=== PATIENT | female | born 1960 | race Caucasian/White ===

== ENCOUNTER 2018-09-18 06:15 | Inpatient (IN) | payer OTHER ==
[~2018-09-18] VITALS: Ht 165.1 cm; Wt 73.8 kg
[2018-09-18 08:19] VITALS: BP 112/60; PULSE 82; RESP 17
[2018-09-18 08:30] VITALS: Ht 165.1 cm; Wt 73.8 kg
[2018-09-18] MEDS ORDERED: CHOL400T10 PO (08:45)
[2018-09-18] MEDS ORDERED: ASPI-817 PO (08:45)
[2018-09-18] MEDS ORDERED: GLYB5TAB3 PO (08:45)
[2018-09-18] MEDS ORDERED: ATOR40TA68 PO (08:45)
[2018-09-18] MEDS ORDERED: BENA10TA4 PO (08:45)
[2018-09-18] MEDS ORDERED: METF100010 PO (08:45)
[2018-09-18] MEDS ORDERED: ALEN70TA5 PO (08:45)
[2018-09-18] MEDS ORDERED: LEVO50TA7 PO (08:45)
[2018-09-18] MEDS ORDERED: ALBU18HF INHALATION (08:53)
[2018-09-18] MEDS ORDERED: LORA10TA3 PO (08:53)
[2018-09-18] MEDS ORDERED: OMEP10CA4 PO (08:53)
[2018-09-18] MEDS ORDERED: CIPR500T4 PO (09:31)
[2018-09-18] MEDS ORDERED: morphine 2 MG INJ IV PRN (11:30)
[2018-09-18] MEDS ORDERED: ONDANSETRON 4 MG INJ IV PRN (11:30)
[2018-09-18] MEDS ORDERED: ACETAMINOPHEN 325 MG TAB PO PRN (11:30)
[2018-09-18] MEDS ORDERED: GLUCOSE GEL 15 GRAM TUBE BUCCAL PRN (12:00)
[2018-09-18] MEDS ORDERED: GLUCOSE GEL 15 GRAM TUBE PO PRN ×2 (12:00)
[2018-09-18] MEDS ORDERED: DEXTROSE 50% 50 ML SYRINGE IV PRN ×2 (12:00)
[2018-09-18] MEDS ORDERED: GLUCAGON 1 MG INJ IM PRN (12:00)
[2018-09-18] MEDS: LEVOFLOXACIN 500MG/D5W (PMX) 100 ML IVPB SCH (12:22)
[2018-09-18] MEDS: DEXTROSE 5%-0.9% NACL 1,000 ML IV SCH (12:23)
[2018-09-18] MEDS: INSULIN ASPART [NOVOLOG] 3 ML PEN SC SCH ×3 (12:56→20:51)
[2018-09-18 14:16] VITALS: BP 124/71; PULSE 76; RESP 16
--- NOTE | 2018-09-18 15:32 | HP ---
Date/Time of Note Date/Time of Note DATE: 09/18/18 TIME: 14:51 Assessment/Plan VTE Prophylaxis Pharmacological prophylaxis: NA/contraindicated Pharm contraindication: surgical contra (Possible) Assessment/Plan Hospital Course 1. Abdominal pain with acute diverticulitis in the distal sigmoid colon. No specific sign of microperforation or large abscess formation at this time. CT scan of abdomen reviewed. Pt was treated with a/b earlier. Patient was transferred from outside facility. Appendix is normal. 2.diabetes mellitus type 2 with hyperglycemia 3. Hypothyroidism 4. Overweight 5. Hypertension 6. History of arthritis 7. History of asthma 8. Fatty hepatomegaly. There are a CT scan reviewed. 9. 1 mm nonobstructing renal stone left kidney. CT scan of abdomen with no contrast seen 10. June 16, 2016 had varicose vein removal surgery on left leg. 11. July 10, 2017 fractured tibial plateau and has consecutive surgery on the open reduction internal fixation on the left leg and 1 of the screw was rejected and removed on additional surgery September 01, 2017 12. History of heart murmur. Assessment/Plan -DVT prophylaxis SCD bilaterally, chemical agents cannot be utilized due to possible surgical interventions -GI prophylaxis Protonix IV Continue with home medications -N.p.o. except meds GI consult with Dr. Kearney, gastroenterology -fall precaution -Pain control -Discussed diagnosis acute diverticulitis, treatment, risks benefits, side effects and alternate treatment. -Medications, their effects and side effects including metabolic, affect on heart were discussed.. -Care coordinated with Dr Ley Results 24hrs Laboratory Tests Test 09/18/18 12:31 Bedside Glucose 244 H HPI/ROS Admit Date/Time Admit Date/Time Sep 18, 2018 at 07:40 Hx of Present Illness This 58-year-old female was transferred from outside facility today around 11 AM . The transfer is because of the insurance purposes. patient went yesterday to [facility] emergency room with abdominal pain, she describes it as a colicky, worsened with urination and defecation. Patient reported nausea, denied vomiting.. There was a CT scan of abdomen without contrast performed in the emergency room: Impression: Interval progression of diverticulitis seen in the distal sigmoid colon with a just adjacent fat stranding and small amount of fluid collection there is no specific sign of the microperforation or large abscess formation at this time. Fatty hepatomegaly. 1 mm nonobstructing renal stone seen in the inferior pole of the left kidney. Previously patient reported that she has acute diverticulitis diagnosed in August 2018, she was taking metronidazole ciprofloxacin, Naproxen, and Zofran. She feels the treatment but if your pain is not improved. She reported during the treatment fever. She also was diagnosed with H. pylori and underwent 2 months of the treatment now she is off treatment. BMP collected today showed sodium 135, potassium 4.7, chloride 96, CO2 27, anion gap 12, glucose 328, BUN 14 mg/L creatinine 0.6 mg/dL GFR more than 60 calcium 9.2. CBC was resulted today and shows WBC 7.9 RBC 4.15 hemoglobin 13.5 hematocrit 39, MCV 94, MCH 32.4, MCHC 34, platelets 311, neutrophil 53% patient. Also urinalysis is performed , the result is abnormal color yellow clarity clear pH 6.5 protein negative blood negative glucose 500 mg/dL WBC 0.5 squamous epithelial moderate, RBC none, urine negative, none l eukocyte esterase none nitrate none, bilirubin none, ketones negative. Patient was given Rocephin 1 g intravenously.. She was given metronidazole 500 mg once and she was given 1 L of normal saline medical history of overweight, hyperlipidemia, osteoporosis diabetes mellitus type 2, hypothyroidism, hypertension, arthritis, history of asthma, history of allergies, Surgical history June 16, 2016 had varicose vein removal surgery on left leg. July 10, 2017 fractured tibial plateau and has consecutive surgery on the open reduction internal fixation on the left leg and 1 of the screw was rejected and removed on additional surgery September 01, 2017. Social history lives with and daughter. ROS Constitutional: No fever, cough or chills, appears overweight. Down quietly in bed EYE: No eye disease. No visual problems. CARDIOVASCULAR: No chest pain. No Tachycardia. No Palpitation. RESPIRATORY: No breathing problems. No COPD or disease of respiration. GASTROINTESTINAL: Patient reported nausea. No Vomiting. No constipation. Abdominal pain 7 out of 10 in the , right lower quadrant pain and left lower quadrant pain urine palpation. Endocrine: No excessive thirst, No polyuria, No hot intolerance. No cold intolerance. Has diabetes mellitus type 2 and hypothyroidism she is taking metformin and a thyroid supplement at home MUSCULO-SKELETAL: Left knee with surgical scar very sensitive on palpation. Sensorium lower extremities waiting. NEUROLOGICAL: Alert oriented in person, place, time and situation. No Headache, Confusion. No Seizures. No problem with balance. PMH/Family/Social Past Medical History Medical History: diabetes, hypertension, hypothyroid Medications Current Medications Insulin Aspart (Novolog Insulin Pen) NOVOLOG *MODERATE* ALGORI... Q4 SC Last administered on 09/18/18at 12:56; Admin Dose 6 UNIT; Start 09/18/18 at 13:00 Dextrose/Sodium Chloride 1,000 ml @ 75 mls/hr [id number] IV Last administered on 09/18/18at 12:23; Admin Dose 75 MLS/HR; Start 09/18/18 at 11:30 Pantoprazole (Protonix Iv) 40 mg DAILY@06 IV ; Start 09/19/18 at 06:00 Acetaminophen (Tylenol Tab) 650 mg Q6H PRN PO MILD PAIN(1-3)OR ELEVATED TEMP; Start 09/18/18 at 11:30 Levofloxacin/ Dextrose 100 ml @ 100 mls/hr Q24H IVPB Last administered on 09/18/18at 12:22; Admin Dose 100 MLS/HR; Start 09/18/18 at 12:00 Ondansetron HCl (Zofran Inj) 4 mg Q4H PRN IV NAUSEA AND/OR VOMITING; Start 09/18/18 at 11:30 Morphine Sulfate (morphine) 2 mg Q4H PRN IV SEVERE PAIN LEVEL 5-10; Start 09/18/18 at 11:30 Miscellaneous Information 1 ea NOTE XX ; Start 09/18/18 at 12:00 Glucose (Glutose) 15 gm Q15M PRN PO DECREASED GLUCOSE; Start 09/18/18 at 12:00 Glucose (Glutose) 22.5 gm Q15M PRN PO DECREASED GLUCOSE; Start 09/18/18 at 12:00 Dextrose (D50w Syringe) 25 ml Q15M PRN IV DECREASED GLUCOSE; Start 09/18/18 at 12:00 Dextrose (D50w Syringe) 50 ml Q15M PRN IV DECREASED GLUCOSE; Start 09/18/18 at 12:00 Glucagon (Glucagen) 1 mg Q15M PRN IM DECREASED GLUCOSE; Start 09/18/18 at 12:00 Glucose (Glutose) 15 gm Q15M PRN BUCCAL DECREASED GLUCOSE; Start 09/18/18 at 12:00 Coded Allergies: amoxicillin (Verified Allergy, Unknown, 09/18/18) meperidine (Verified Allergy, Unknown, 09/18/18) pseudoephedrine (Verified Allergy, Unknown, 09/18/18) Social History Alcohol Use: none Smoking Status: Never smoker Drug Use: none Exam/Review of Systems Vital Signs Vitals Vital Signs Date Temp Pulse Resp B/P (MAP) Pulse Ox O2 O2 Flow FiO2 Time Delivery Rate 09/18/18 98.0 76 16 124/71 98 Room Air 14:16 (88) Exam Exam No acute distress. Eyes: anicteric, EOM's intact, no pallor Nose: no rhinorrhea Neck: supple, no thyromegaly, no carotid bruits Lungs: clear bilaterally, decreased. CVS: regular rate and rhythm, soft murmur more likely systolic Abdomen: soft, bowel sounds present, no hepatosplenomegally, pain on palpation in the right lower quadrant of abdomen, pain on palpation in left lower quadrant of abdomen some guarding is seen Rectal: differed. External genitalia: no lesions. No Murray Extremities: no edema, DP palpable Neuro: alert and oriented x 3 Gait: Unable to assess patient in the bed Motor strenght: 5+/5+ Sensory exam is normal Deep tendon reflexes: normal, Babisky reflexes are absent bilaterally Skin: Left knee deformation and scar. Varicose veins are seen lower extremities MICHELLE MEDELLIN Sep 18, 2018 15:01
[2018-09-18] MEDS ORDERED: ALBUTEROL 18 GM INHALER INH PRN (16:30)
[2018-09-18] MEDS: BENAZEPRIL 10 MG TAB PO SCH (18:32)
[2018-09-18 20:14] VITALS: BP 112/58; PULSE 72; RESP 18
[2018-09-19] MEDS: INSULIN ASPART [NOVOLOG] 3 ML PEN SC SCH ×6 (00:59→22:13)
[2018-09-19 02:12] VITALS: BP 104/56; PULSE 75; RESP 16
[2018-09-19] MEDS: DEXTROSE 5%-0.9% NACL 1,000 ML IV SCH ×3 (02:50→19:12)
[2018-09-19] MEDS: LEVOTHYROXINE 50 MCG TAB PO SCH (06:30)
[2018-09-19] MEDS: PANTOPRAZOLE 40 MG INJ IV SCH (06:30)
[2018-09-19 07:18] VITALS: BP 111/60; PULSE 71; RESP 18
[2018-09-19] MEDS: BENAZEPRIL 10 MG TAB PO SCH (08:19)
--- NOTE | 2018-09-19 11:30 | PN ---
Date/Time of Note Date/Time of Note DATE: 09/19/18 TIME: 11:29 Assessment/Plan VTE Prophylaxis Risk score (from Ns)>0 risk: 3 SCD applied (from Ns): Yes Pharmacological prophylaxis: NA/contraindicated Pharm contraindication: surgical contra Lines/Catheters IV C[facility] Type (from [facility]): Peripheral IV Assessment/Plan Hospital Course 1. Abdominal pain with acute diverticulitis in the distal sigmoid colon. No specific sign of microperforation or large abscess formation at this time. CT scan of abdomen reviewed. Pt was treated with a/b earlier. Patient was transferred from outside facility. Appendix is normal. Pain is decreased 2.diabetes mellitus type 2 with hyperglycemia 3. Hypothyroidism 4. Overweight 5. Hypertension, 6. History of arthritis 7. History of asthma 8. Fatty hepatomegaly. There are a CT scan reviewed. 9. 1 mm nonobstructing renal stone left kidney. CT scan of abdomen with no contrast seen 10. June 16, 2016 had varicose vein removal surgery on left leg. 11. July 10, 2017 fractured tibial plateau and has consecutive surgery on the open reduction internal fixation on the left leg and 1 of the screw was rejected and removed on additional surgery September 01, 2017 12. History of heart murmur. Assessment/Plan Keep n.p.o. Lab work reviewed Keep IV fluids Antibiotics to continue consult is appreciated GI prophylaxis Protonix IV Pain control Hypoglycemic control Result Diagram: 09/19/18 0556 09/19/18 0556 Results 24hrs Laboratory Tests Test 09/18/18 12:31 09/18/18 15:21 09/18/18 18:31 09/18/18 20:47 Bedside Glucose 244 H 206 202 Thyroid Stimulating 1.240 Hormone (TSH) Test 09/19/18 00:57 09/19/18 05:14 09/19/18 05:56 09/19/18 08:18 Bedside Glucose 230 H 168 230 H White Blood Count 6.4 Red Blood Count 4.07 L Hemoglobin 13.0 Hematocrit 38.9 Mean Corpuscular 95.6 Volume Mean Corpuscular 31.9 Hemoglobin Mean Corpuscular 33.4 Hemoglobin Concent Red Cell 12.7 Distribution Width Platelet Count 323 Mean Platelet Volume 10.1 Immature 1.200 H Granulocytes % Neutrophils % 42.3 Lymphocytes % 42.2 Monocytes % 10.2 Eosinophils % 3.3 Basophils % 0.8 Nucleated Red Blood 0.0 Cells % Immature 0.080 H Granulocytes # Neutrophils # 2.7 Lymphocytes # 2.7 Monocytes # 0.7 Eosinophils # 0.2 Basophils # 0.1 Nucleated Red Blood 0.0 Cells # Sodium Level 141 Potassium Level 4.3 Chloride Level 107 Carbon Dioxide Level 28 Anion Gap 6 Blood Urea Nitrogen 8 Creatinine 0.59 Est Glomerular > 60 Filtrat Rate mL/min Glucose Level 194 Hemoglobin A1c 10.8 H Uric Acid 3.5 Calcium Level 9.1 Subjective 24 Hr Interval Summary Free Text/Dictation Constitutional: No fever, cough or chills. EYE: No eye disease. No visual problems. CARDIOVASCULAR: No chest pain. No tachycardia. No Palpitation. RESPIRATORY: No breathing problems. No COPD or disease of respiration. GASTROINTESTINAL: No Nausea. No Vomiting. No constipation. abd. pain decreased Endocrine: No excessive thirst, No polyuria, No hot intolerance. No cold intolerance. has DM type II. MUSCULO-SKELETAL: no left knee pain, has deformity and scar NEUROLOGICAL: Alert oriented in person, place, time and situation. No Headache, Confusion. No Seizures. No problem with balance. Exam/Review of Systems Exam Vitals Vital Signs Date Temp Pulse Resp B/P (MAP) Pulse Ox O2 O2 Flow FiO2 Time Delivery Rate 09/19/18 98.1 71 18 111/60 98 07:18 (77) 09/18/18 Room Air 14:16 Intake and Output 09/18/18 09/18/18 09/19/18 1414:59 22:59 06:59 IntakeIntake Total 100 ml 360 ml 160 ml BalanceBalance 100 ml 360 ml 160 ml Exam No acute distress, no events overnight. Eyes: anicteric, EOM's intact, no pallor Nose: no rhinorrhea Neck: supple, no thyromegaly, no carotid bruits Lungs: clear bilaterally, decreased. CVS: regular rate and rhythm, systolic murmur grade 3 murmurs Abdomen: soft, bowel sounds present, no hepatosplenomegally, no masses, no rebound or guarding. Painful on palpation in the right lower quadrant. Rectal: differed. External genitalia: no lesions. No Murray Extremities: no edema, DP palpable Neuro: alert and oriented x 3 Gait: Unable to assess, patient in bed Motor strenght: 5+/5+ Deep tendon reflexes: normal, Babisky reflexes are absent bilaterally Skin: no new lesions, old healed scars Results Results 24hrs Laboratory Tests Test 09/18/18 12:31 09/18/18 15:21 09/18/18 18:31 09/18/18 20:47 Bedside Glucose 244 H 206 202 Thyroid Stimulating 1.240 Hormone (TSH) Test 09/19/18 00:57 09/19/18 05:14 09/19/18 05:56 09/19/18 08:18 Bedside Glucose 230 H 168 230 H White Blood Count 6.4 Red Blood Count 4.07 L Hemoglobin 13.0 Hematocrit 38.9 Mean Corpuscular 95.6 Volume Mean Corpuscular 31.9 Hemoglobin Mean Corpuscular 33.4 Hemoglobin Concent Red Cell 12.7 Distribution Width Platelet Count 323 Mean Platelet Volume 10.1 Immature 1.200 H Granulocytes % Neutrophils % 42.3 Lymphocytes % 42.2 Monocytes % 10.2 Eosinophils % 3.3 Basophils % 0.8 Nucleated Red Blood 0.0 Cells % Immature 0.080 H Granulocytes # Neutrophils # 2.7 Lymphocytes # 2.7 Monocytes # 0.7 Eosinophils # 0.2 Basophils # 0.1 Nucleated Red Blood 0.0 Cells # Sodium Level 141 Potassium Level 4.3 Chloride Level 107 Carbon Dioxide Level 28 Anion Gap 6 Blood Urea Nitrogen 8 Creatinine 0.59 Est Glomerular > 60 Filtrat Rate mL/min Glucose Level 194 Hemoglobin A1c 10.8 H Uric Acid 3.5 Calcium Level 9.1 Medications Medication Current Medications Insulin Aspart (Novolog Insulin Pen) NOVOLOG *MODERATE* ALGORI... Q4 SC Last administered on 09/19/18at 08:22; Admin Dose 6 UNIT; Start 09/18/18 at 13:00 Dextrose/Sodium Chloride 1,000 ml @ 75 mls/hr [id number] IV Last administered on 09/19/18at 02:50; Admin Dose 75 MLS/HR; Start 09/18/18 at 11:30 Pantoprazole (Protonix Iv) 40 mg DAILY@06 IV Last administered on 09/19/18at 06:30; Admin Dose 40 MG; Start 09/19/18 at 06:00 Acetaminophen (Tylenol Tab) 650 mg Q6H PRN PO MILD PAIN(1-3)OR ELEVATED TEMP; Start 09/18/18 at 11:30 Levofloxacin/ Dextrose 100 ml @ 100 mls/hr Q24H IVPB Last administered on 09/18/18at 12:22; Admin Dose 100 MLS/HR; Start 09/18/18 at 12:00 Ondansetron HCl (Zofran Inj) 4 mg Q4H PRN IV NAUSEA AND/OR VOMITING; Start 09/18/18 at 11:30 Morphine Sulfate (morphine) 2 mg Q4H PRN IV SEVERE PAIN LEVEL 5-10; Start 09/18/18 at 11:30 Miscellaneous Information 1 ea NOTE XX ; Start 09/18/18 at 12:00 Glucose (Glutose) 15 gm Q15M PRN PO DECREASED GLUCOSE; Start 09/18/18 at 12:00 Glucose (Glutose) 22.5 gm Q15M PRN PO DECREASED GLUCOSE; Start 09/18/18 at 12:00 Dextrose (D50w Syringe) 25 ml Q15M PRN IV DECREASED GLUCOSE; Start 09/18/18 at 12:00 Dextrose (D50w Syringe) 50 ml Q15M PRN IV DECREASED GLUCOSE; Start 09/18/18 at 12:00 Glucagon (Glucagen) 1 mg Q15M PRN IM DECREASED GLUCOSE; Start 09/18/18 at 12:00 Glucose (Glutose) 15 gm Q15M PRN BUCCAL DECREASED GLUCOSE; Start 09/18/18 at 12:00 Albuterol (Ventolin Hfa) 2 puff Q4H PRN INH SHORTNESS OF BREATH; Start 09/18/18 at 16:30 Benazepril HCl (Lotensin) 10 mg DAILY PO Last administered on 09/19/18at 08:19; Admin Dose 10 MG; Start 09/18/18 at 16:30 Levothyroxine Sodium (Synthroid) 50 mcg BEFORE BREAKFAST PO Last administered on 09/19/18at 06:30; Admin Dose 50 MCG; Start 09/19/18 at 07:00 MICHELLE MEDELLIN Sep 19, 2018 11:29
[2018-09-19] MEDS: LEVOFLOXACIN 500MG/D5W (PMX) 100 ML IVPB SCH (12:25)
[2018-09-19 13:55] VITALS: BP 110/63; PULSE 73; RESP 18
--- NOTE | 2018-09-19 16:41 | CONS ---
DATE OF ADMISSION: 09/18/2018 DATE OF CONSULTATION: TYPE OF CONSULTATION: Gastroenterology. From Leanne Foote MD to Percy Wells MD and HISTORY OF PRESENT ILLNESS: The patient is a 58-year-old [facility]. She had difficulty in urination and defecation. CAT scan of th e abdomen done in the ER showed diverticulitis in the distal sigmoid colon, so was admitted for furth er management. The patient was transferred to this facility for insurance purpose. She was also valencia gnosed to have diverticulitis in 08/2018. The patient was placed on Cipro and Flagyl. She also had a history of H. pylori infection and was treated for that. PAST MEDICAL HISTORY: Diabetes mellitus, hypothyroidism, hypertension, arthritis, bronchial asthma. PAST SURGICAL HISTORY: Removal of varicose vein, fractured tibia. Also one of the screws was reject ed and removed requiring additional surgery in 2018. REVIEW OF SYSTEMS: Otherwise negative. PHYSICAL EXAMINATION: GENERAL: Alert, awake, not in distress. VITAL SIGNS: Stable. HEENT: Unremarkable. NECK: Supple. No thyromegaly, no lymphadenopathy. CARDIOVASCULAR: No murmur, gallop or click. LUNGS: Clear. ABDOMEN: Soft, mild tenderness in right lower quadrant. Bowel sounds are good. No mass felt per ab domen. EXTREMITIES: No edema. CENTRAL NERVOUS SYSTEM: Grossly within normal limit. LABORATORY DATA: WBC 6.4, hematocrit is stable. BNP is also within normal limits. IMPRESSION: 1. Mild diverticulitis. 2. Diabetes mellitus. 3. Obesity. 4. Hypothyroidism. 5. Bronchial asthma. 6. Arthritis. 7. Fatty liver. 8. Status post removal of the varicose vein. PLAN: To start the patient on a clear liquid diet. Continue antibiotic. We will advance the diet s lowly. Dictated By: LEANNE FOOTE MD PJ/NTS Conf#: [id number] DID#: [id number] CC: PERCY WELLS MD;*EndCC*
[2018-09-19 19:30] VITALS: BP 110/62; PULSE 58; RESP 17
[2018-09-19] MEDS: metroNIDAZOLE 500 MG/NS (PMX) 100 ML IVPB SCH (21:19)
[2018-09-20 01:42] VITALS: BP 129/72; PULSE 69; RESP 18
[2018-09-20] MEDS: PANTOPRAZOLE 40 MG INJ IV SCH (05:49)
[2018-09-20] MEDS: metroNIDAZOLE 500 MG/NS (PMX) 100 ML IVPB SCH ×3 (05:49→23:06)
[2018-09-20] MEDS: LEVOTHYROXINE 50 MCG TAB PO SCH (06:41)
[2018-09-20] MEDS: INSULIN ASPART [NOVOLOG] 3 ML PEN SC SCH ×5 (06:48→20:44)
[2018-09-20 07:30] VITALS: BP 113/60; PULSE 69; RESP 20
[2018-09-20] MEDS: BENAZEPRIL 10 MG TAB PO SCH (08:04)
[2018-09-20] MEDS: SOD CHLORIDE 0.45% 1,000 ML IV SCH (12:30)
[2018-09-20] MEDS: LEVOFLOXACIN 500MG/D5W (PMX) 100 ML IVPB SCH (12:30)
[2018-09-20 14:00] VITALS: BP 107/75; PULSE 63; RESP 18
--- NOTE | 2018-09-20 16:18 | PN ---
Date/Time of Note Date/Time of Note DATE: 09/20/18 TIME: 16:15 Assessment/Plan VTE Prophylaxis Risk score (from Ns)>0 risk: 3 SCD applied (from Ns): Yes Pharmacological prophylaxis: NA/contraindicated Pharm contraindication: low risk/ambulating Lines/Catheters IV Catheter Type (from [facility] [place]): Peripheral IV Assessment/Plan Assessment/Plan Hospital Course 1. Abdominal pain with acute diverticulitis in the distal sigmoid colon. No specific sign of microperforation or large abscess formation at this time. CT scan of abdomen reviewed. Pt was treated with a/b earlier. Patient was tr ansferred from outside facility. Appendix is normal. Pain is decreased 2.diabetes mellitus type 2 with hyperglycemia 3. Hypothyroidism 4. Overweight 5. Hypertension, 6. History of arthritis 7. History of asthma 8. Fatty hepatomegaly. There are a CT scan reviewed. 9. 1 mm nonobstructing renal stone left kidney. CT scan of abdomen with no contrast seen 10. June 16, 2016 had varicose vein removal surgery on left leg. 11. July 10, 2017 fractured tibial plateau and has consecutive surgery on the open reduction internal fixation on the left leg and 1 of the screw was rejected and removed on additional surgery September 01, 2017 12. History of heart murmur. Assessment/Plan cld> advance diet per GI CW Levaquin/flagyl iv fluids > NS Hold BP meds due to borderline BP consult is appreciated GI prophylaxis Protonix IV Pain control Hypoglycemic control Result Diagram: 09/20/18 0544 09/20/18 0544 Results 24hrs Laboratory Tests Test 09/19/18 17:44 09/19/18 22:10 09/20/18 01:32 09/20/18 05:44 Bedside Glucose 174 165 179 White Blood Count 6.2 Red Blood Count 3.93 L Hemoglobin 12.5 Hematocrit 37.8 Mean Corpuscular 96.2 Volume Mean Corpuscular 31.8 Hemoglobin Mean Corpuscular 33.1 Hemoglobin Concent Red Cell 12.8 Distribution Width Platelet Count 332 Mean Platelet Volume 10.1 Immature 1.100 H Granulocytes % Neutrophils % 35.7 L Lymphocytes % 49.4 Monocytes % 9.9 Eosinophils % 3.4 Basophils % 0.5 Nucleated Red Blood 0.0 Cells % Immature 0.070 H Granulocytes # Neutrophils # 2.2 Lymphocytes # 3.1 H Monocytes # 0.6 Eosinophils # 0.2 Basophils # 0.0 Nucleated Red Blood 0.0 Cells # Sodium Level 140 Potassium Level 3.9 Chloride Level 108 Carbon Dioxide Level 27 Anion Gap 5 Blood Urea Nitrogen 7 Creatinine 0.64 Est Glomerular > 60 Filtrat Rate mL/min Glucose Level 223 H Calcium Level 8.8 Test 09/20/18 06:45 09/20/18 08:03 09/20/18 12:39 Bedside Glucose 212 246 H 171 Subjective 24 Hr Interval Summary Free Text/Dictation abdominal pain better no nausea/vomitting Exam/Review of Systems Exam Vitals Vital Signs Date Temp Pulse Resp B/P (MAP) Pulse Ox O2 O2 Flow FiO2 Time Delivery Rate 09/20/18 97.8 63 18 107/75 96 Room Air 14:00 (86) Intake and Output 09/19/18 09/19/18 09/20/18 1515:00 23:00 07:00 IntakeIntake Total 1880 ml 1100 ml BalanceBalance 1880 ml 1100 ml Exam No acute distress, no events overnight. Neck: supple, no thyromegaly, no carotid bruits Lungs: clear bilaterally, decreased. CVS: regular rate and rhythm, abdomen soft, bowel sounds present, TTP RLQ Extremities: no edema, DP palpable Neuro: alert and oriented x 3 Results Results 24hrs Laboratory Tests Test 09/19/18 17:44 09/19/18 22:10 09/20/18 01:32 09/20/18 05:44 Bedside Glucose 174 165 179 White Blood Count 6.2 Red Blood Count 3.93 L Hemoglobin 12.5 Hematocrit 37.8 Mean Corpuscular 96.2 Volume Mean Corpuscular 31.8 Hemoglobin Mean Corpuscular 33.1 Hemoglobin Concent Red Cell 12.8 Distribution Width Platelet Count 332 Mean Platelet Volume 10.1 Immature 1.100 H Granulocytes % Neutrophils % 35.7 L Lymphocytes % 49.4 Monocytes % 9.9 Eosinophils % 3.4 Basophils % 0.5 Nucleated Red Blood 0.0 Cells % Immature 0.070 H Granulocytes # Neutrophils # 2.2 Lymphocytes # 3.1 H Monocytes # 0.6 Eosinophils # 0.2 Basophils # 0.0 Nucleated Red Blood 0.0 Cells # Sodium Level 140 Potassium Level 3.9 Chloride Level 108 Carbon Dioxide Level 27 Anion Gap 5 Blood Urea Nitrogen 7 Creatinine 0.64 Est Glomerular > 60 Filtrat Rate mL/min Glucose Level 223 H Calcium Level 8.8 Test 09/20/18 06:45 09/20/18 08:03 09/20/18 12:39 Bedside Glucose 212 246 H 171 Medications Medication Current Medications Pantoprazole (Protonix Iv) 40 mg DAILY@06 IV Last administered on 09/20/18at 05:49; Admin Dose 40 MG; Start 09/19/18 at 06:00 Acetaminophen (Tylenol Tab) 650 mg Q6H PRN PO MILD PAIN(1-3)OR ELEVATED TEMP Last administered on 09/20/18at 01:45; Admin Dose 650 MG; Start 09/18/18 at 11:30 Levofloxacin/ Dextrose 100 ml @ 100 mls/hr Q24H IVPB Last administered on 09/20/18at 12:30; Admin Dose 100 MLS/HR; Start 09/18/18 at 12:00 Ondansetron HCl (Zofran Inj) 4 mg Q4H PRN IV NAUSEA AND/OR VOMITING; Start 09/18/18 at 11:30 Morphine Sulfate (morphine) 2 mg Q4H PRN IV SEVERE PAIN LEVEL 5-10; Start 09/18/18 at 11:30 Miscellaneous Information 1 ea NOTE XX ; Start 09/18/18 at 12:00 Glucose (Glutose) 15 gm Q15M PRN PO DECREASED GLUCOSE; Start 09/18/18 at 12:00 Glucose (Glutose) 22.5 gm Q15M PRN PO DECREASED GLUCOSE; Start 09/18/18 at 12:00 Dextrose (D50w Syringe) 25 ml Q15M PRN IV DECREASED GLUCOSE; Start 09/18/18 at 12:00 Dextrose (D50w Syringe) 50 ml Q15M PRN IV DECREASED GLUCOSE; Start 09/18/18 at 12:00 Glucagon (Glucagen) 1 mg Q15M PRN IM DECREASED GLUCOSE; Start 09/18/18 at 12:00 Glucose (Glutose) 15 gm Q15M PRN BUCCAL DECREASED GLUCOSE; Start 09/18/18 at 12:00 Albuterol (Ventolin Hfa) 2 puff Q4H PRN INH SHORTNESS OF BREATH; Start 09/18/18 at 16:30 Benazepril HCl (Lotensin) 10 mg DAILY PO Last administered on 09/20/18at 08:04; Admin Dose 10 MG; Start 09/18/18 at 16:30 Levothyroxine Sodium (Synthroid) 50 mcg BEFORE BREAKFAST PO Last administered on 09/20/18at 06:41; Admin Dose 50 MCG; Start 09/19/18 at 07:00 Metronidazole 100 ml @ 100 mls/hr Q8 IVPB Last administered on 09/20/18at 14:37; Admin Dose 100 MLS/HR; Start 09/19/18 at 22:00 Insulin Aspart (Novolog Insulin Pen) NOVOLOG *MODERATE* ALGORI... AC MEALS AND BEDTIME SC Last administered on 09/20/18at 12:40; Admin Dose 2 UNIT; Start 09/19/18 at 21:00 Sodium Chloride 1,000 ml @ 75 mls/hr [id number] IV Last administered on 09/20/18at 12:30; Admin Dose 75 MLS/HR; Start 09/20/18 at 11:30 CHAD RUSSELL MD Sep 20, 2018 16:18
--- NOTE | 2018-09-20 19:12 | CONS ---
Assessment/Plan Assessment/Plan Assessment/Plan (Daily) LABORATORY DATA: WBC 6.4, hematocrit is stable. BNP is also within normal limits. IMPRESSION: 1. Mild diverticulitis. 2. Diabetes mellitus. 3. Obesity. 4. Hypothyroidism. 5. Bronchial asthma. 6. Arthritis. 7. Fatty liver. 8. Status post removal of the varicose vein. PLAN: To start the patient on a clear liquid diet. Continue antibiotic. We will advance the diet slowly. Full liquid diet Consultation Date/Type/Reason Admit Date/Time Sep 18, 2018 at 07:40 Initial Consult Date Date/Time of Note DATE: 09/20/18 TIME: 19:12 24 HR Interval Summary Constitutional: improved Exam/Review of Systems Exam Vitals Vital Signs Date Temp Pulse Resp B/P (MAP) Pulse Ox O2 O2 Flow FiO2 Time Delivery Rate 09/20/18 97.8 63 18 107/75 96 Room Air 14:00 (86) Intake and Output 09/19/18 09/19/18 09/20/18 1515:00 23:00 07:00 IntakeIntake Total 1880 ml 1100 ml BalanceBalance 1880 ml 1100 ml Constitutional: alert, oriented, well developed Psych: no complaints, nl mood/affect Head: normocephalic, atraumatic Eyes: nl conjunctiva, EOMI, nl lids, nl sclera, PERRL ENMT: nl external ears & nose, nl lips & teeth, nl nasal mucosa & septum Neck: supple, non-tender Respiratory: clear to auscultation, normal air movement Cardiovascular: regular rate and rhythm, nl pulses Gastrointestinal: soft, nl liver, spleen, non-tender Musculoskeletal: nl extremities to inspection, nl gait and stance Extremities: normal pulses Neurological: FORENSICS ANALYST II-XII intact, nl mental status, nl speech, nl strength Skin: nl turgor; No rash or lesions Lymph: nl lymph nodes Results Result Diagram: 09/20/18 0544 09/20/18 0544 Results 24hrs Laboratory Tests Test 09/19/18 22:10 09/20/18 01:32 09/20/18 05:44 09/20/18 06:45 Bedside Glucose 165 179 212 White Blood Count 6.2 Red Blood Count 3.93 L Hemoglobin 12.5 Hematocrit 37.8 Mean Corpuscular 96.2 Volume Mean Corpuscular 31.8 Hemoglobin Mean Corpuscular 33.1 Hemoglobin Concent Red Cell 12.8 Distribution Width Platelet Count 332 Mean Platelet Volume 10.1 Immature 1.100 H Granulocytes % Neutrophils % 35.7 L Lymphocytes % 49.4 Monocytes % 9.9 Eosinophils % 3.4 Basophils % 0.5 Nucleated Red Blood 0.0 Cells % Immature 0.070 H Granulocytes # Neutrophils # 2.2 Lymphocytes # 3.1 H Monocytes # 0.6 Eosinophils # 0.2 Basophils # 0.0 Nucleated Red Blood 0.0 Cells # Sodium Level 140 Potassium Level 3.9 Chloride Level 108 Carbon Dioxide Level 27 Anion Gap 5 Blood Urea Nitrogen 7 Creatinine 0.64 Est Glomerular > 60 Filtrat Rate mL/min Glucose Level 223 H Calcium Level 8.8 Test 09/20/18 08:03 09/20/18 12:39 09/20/18 17:37 Bedside Glucose 246 H 171 141 Medications Medication Current Medications Pantoprazole (Protonix Iv) 40 mg DAILY@06 IV Last administered on 09/20/18at 05:49; Admin Dose 40 MG; Start 09/19/18 at 06:00 Acetaminophen (Tylenol Tab) 650 mg Q6H PRN PO MILD PAIN(1-3)OR ELEVATED TEMP Last administered on 09/20/18at 01:45; Admin Dose 650 MG; Start 09/18/18 at 11:30 Levofloxacin/ Dextrose 100 ml @ 100 mls/hr Q24H IVPB Last administered on 09/20/18at 12:30; Admin Dose 100 MLS/HR; Start 09/18/18 at 12:00 Ondansetron HCl (Zofran Inj) 4 mg Q4H PRN IV NAUSEA AND/OR VOMITING; Start 09/18/18 at 11:30 Morphine Sulfate (morphine) 2 mg Q4H PRN IV SEVERE PAIN LEVEL 5-10; Start 09/18/18 at 11:30 Miscellaneous Information 1 ea NOTE XX ; Start 09/18/18 at 12:00 Glucose (Glutose) 15 gm Q15M PRN PO DECREASED GLUCOSE; Start 09/18/18 at 12:00 Glucose (Glutose) 22.5 gm Q15M PRN PO DECREASED GLUCOSE; Start 09/18/18 at 12:00 Dextrose (D50w Syringe) 25 ml Q15M PRN IV DECREASED GLUCOSE; Start 09/18/18 at 12:00 Dextrose (D50w Syringe) 50 ml Q15M PRN IV DECREASED GLUCOSE; Start 09/18/18 at 12:00 Glucagon (Glucagen) 1 mg Q15M PRN IM DECREASED GLUCOSE; Start 09/18/18 at 12:00 Glucose (Glutose) 15 gm Q15M PRN BUCCAL DECREASED GLUCOSE; Start 09/18/18 at 12:00 Albuterol (Ventolin Hfa) 2 puff Q4H PRN INH SHORTNESS OF BREATH; Start 09/18/18 at 16:30 Levothyroxine Sodium (Synthroid) 50 mcg BEFORE BREAKFAST PO Last administered on 09/20/18at 06:41; Admin Dose 50 MCG; Start 09/19/18 at 07:00 Metronidazole 100 ml @ 100 mls/hr Q8 IVPB Last administered on 09/20/18at 14:37; Admin Dose 100 MLS/HR; Start 09/19/18 at 22:00 Insulin Aspart (Novolog Insulin Pen) NOVOLOG *MODERATE* ALGORI... AC MEALS AND BEDTIME SC Last administered on 09/20/18at 17:38; Admin Dose 2 UNIT; Start 09/19/18 at 21:00 Sodium Chloride 1,000 ml @ 75 mls/hr [id number] IV Last administered on 09/20/18at 12:30; Admin Dose 75 MLS/HR; Start 09/20/18 at 11:30 Atorvastatin Calcium (Lipitor) 20 mg QHS PO ; Start 09/20/18 at 21:00 LEANNE FOOTE MD Sep 20, 2018 19:12
[2018-09-20 19:43] VITALS: BP 120/66; PULSE 77; RESP 17
[2018-09-20] MEDS: ATORVASTATIN 20 MG TAB PO SCH (20:44)
[2018-09-21] MEDS: SOD CHLORIDE 0.45% 1,000 ML IV SCH ×3 (00:50→14:10)
[2018-09-21 02:09] VITALS: BP 111/64; PULSE 74; RESP 16
[2018-09-21] MEDS: metroNIDAZOLE 500 MG/NS (PMX) 100 ML IVPB SCH ×2 (05:25→14:16)
[2018-09-21] MEDS: LEVOTHYROXINE 50 MCG TAB PO SCH (05:25)
[2018-09-21] MEDS: PANTOPRAZOLE 40 MG INJ IV SCH (05:25)
[2018-09-21 07:31] VITALS: BP 114/73; PULSE 67; RESP 20
[2018-09-21] MEDS: INSULIN ASPART [NOVOLOG] 3 ML PEN SC SCH ×4 (08:34→20:30)
--- NOTE | 2018-09-21 11:17 | CONS ---
Assessment/Plan Assessment/Plan Assessment/Plan (Daily) LABORATORY DATA: WBC 6.4, hematocrit is stable. BNP is also within normal limits. IMPRESSION: 1. Mild diverticulitis. 2. Diabetes mellitus. 3. Obesity. 4. Hypothyroidism. 5. Bronchial asthma. 6. Arthritis. 7. Fatty liver. 8. Status post removal of the varicose vein. PLAN: To start the patient on a clear liquid diet. Continue antibiotic. We will advance the diet slowly. Advance to regular diet Consultation Date/Type/Reason Admit Date/Time Sep 18, 2018 at 07:40 Initial Consult Date Date/Time of Note DATE: 09/21/18 TIME: 11:17 24 HR Interval Summary Constitutional: no complaints, improved Exam/Review of Systems Exam Vitals Vital Signs Date Temp Pulse Resp B/P (MAP) Pulse Ox O2 O2 Flow FiO2 Time Delivery Rate 09/21/18 98.3 67 20 114/73 97 07:31 (87) 09/20/18 Room Air 14:00 Intake and Output 09/20/18 09/20/18 09/21/18 1515:00 23:00 07:00 IntakeIntake Total 1660 ml 905 ml 1410 ml OutputOutput Total 1 ml BalanceBalance 1660 ml 905 ml 1409 ml Constitutional: alert, oriented, well developed Psych: no complaints, nl mood/affect Head: normocephalic, atraumatic Eyes: nl conjunctiva, EOMI, nl lids, nl sclera, PERRL ENMT: nl external ears & nose, nl lips & teeth, nl nasal mucosa & septum Neck: supple, non-tender Respiratory: clear to auscultation, normal air movement Cardiovascular: regular rate and rhythm, nl pulses Gastrointestinal: soft, nl liver, spleen, non-tender Musculoskeletal: nl extremities to inspection, nl gait and stance Extremities: normal pulses Neurological: C CONSULTANT II-XII intact, nl mental status, nl speech, nl strength Skin: nl turgor; No rash or lesions Lymph: nl lymph nodes Results Result Diagram: 09/21/18 0615 09/20/18 0544 Results 24hrs Laboratory Tests Test 09/20/18 12:39 09/20/18 17:37 09/20/18 20:43 09/21/18 06:15 Bedside Glucose 171 141 137 White Blood Count 6.3 Red Blood Count 4.04 L Hemoglobin 13.0 Hematocrit 38.3 Mean Corpuscular 94.8 Volume Mean Corpuscular 32.2 Hemoglobin Mean Corpuscular 33.9 Hemoglobin Concent Red Cell 12.8 Distribution Width Platelet Count 361 Mean Platelet Volume 9.9 Immature 0.600 H Granulocytes % Neutrophils % 45.9 Lymphocytes % 42.2 Monocytes % 8.3 Eosinophils % 2.4 Basophils % 0.6 Nucleated Red Blood 0.0 Cells % Immature 0.040 H Granulocytes # Neutrophils # 2.9 Lymphocytes # 2.7 Monocytes # 0.5 Eosinophils # 0.2 Basophils # 0.0 Nucleated Red Blood 0.0 Cells # Test 09/21/18 07:52 Bedside Glucose 184 Medications Medication Current Medications Pantoprazole (Protonix Iv) 40 mg DAILY@06 IV Last administered on 09/21/18at 05:25; Admin Dose 40 MG; Start 09/19/18 at 06:00 Acetaminophen (Tylenol Tab) 650 mg Q6H PRN PO MILD PAIN(1-3)OR ELEVATED TEMP Last administered on 09/20/18at 01:45; Admin Dose 650 MG; Start 09/18/18 at 11:30 Levofloxacin/ Dextrose 100 ml @ 100 mls/hr Q24H IVPB Last administered on 09/20/18at 12:30; Admin Dose 100 MLS/HR; Start 09/18/18 at 12:00 Ondansetron HCl (Zofran Inj) 4 mg Q4H PRN IV NAUSEA AND/OR VOMITING; Start 09/18/18 at 11:30 Morphine Sulfate (morphine) 2 mg Q4H PRN IV SEVERE PAIN LEVEL 5-10; Start 09/18/18 at 11:30 Miscellaneous Information 1 ea NOTE XX ; Start 09/18/18 at 12:00 Glucose (Glutose) 15 gm Q15M PRN PO DECREASED GLUCOSE; Start 09/18/18 at 12:00 Glucose (Glutose) 22.5 gm Q15M PRN PO DECREASED GLUCOSE; Start 09/18/18 at 12:00 Dextrose (D50w Syringe) 25 ml Q15M PRN IV DECREASED GLUCOSE; Start 09/18/18 at 12:00 Dextrose (D50w Syringe) 50 ml Q15M PRN IV DECREASED GLUCOSE; Start 09/18/18 at 12:00 Glucagon (Glucagen) 1 mg Q15M PRN IM DECREASED GLUCOSE; Start 09/18/18 at 12:00 Glucose (Glutose) 15 gm Q15M PRN BUCCAL DECREASED GLUCOSE; Start 09/18/18 at 12:00 Albuterol (Ventolin Hfa) 2 puff Q4H PRN INH SHORTNESS OF BREATH; Start 09/18/18 at 16:30 Levothyroxine Sodium (Synthroid) 50 mcg BEFORE BREAKFAST PO Last administered on 09/21/18at 05:25; Admin Dose 50 MCG; Start 09/19/18 at 07:00 Metronidazole 100 ml @ 100 mls/hr Q8 IVPB Last administered on 09/21/18 05:25; Admin Dose 100 MLS/HR; Start 09/19/18 at 22:00 Insulin Aspart (Novolog Insulin Pen) NOVOLOG *MODERATE* ALGORI... AC MEALS AND BEDTIME SC Last administered on 09/21/18at 08:34; Admin Dose 4 UNIT; Start 09/19/18 at 21:00 Sodium Chloride 1,000 ml @ 75 mls/hr [id number] IV Last administered on 09/21/18at 05:29; Admin Dose 75 MLS/HR; Start 09/20/18 at 11:30 Atorvastatin Calcium (Lipitor) 20 mg QHS PO Last administered on 09/20/18at 20 :44; Admin Dose 20 MG; Start 09/20/18 at 21:00 LEANNE FOOTE MD Sep 21, 2018 11:17
[2018-09-21] MEDS: LEVOFLOXACIN 500MG/D5W (PMX) 100 ML IVPB SCH (12:11)
[2018-09-21 14:33] VITALS: BP 121/67; PULSE 82; RESP 18
--- NOTE | 2018-09-21 14:38 | PN ---
Date/Time of Note Date/Time of Note DATE: 09/21/18 TIME: 14:36 Assessment/Plan VTE Prophylaxis Risk score (from Ns)>0 risk: 3 SCD applied (from Ns): Yes Pharmacological prophylaxis: NA/contraindicated Pharm contraindication: low risk/ambulating Lines/Catheters IV C[facility]ter Type [facility]from [facility] Peripheral IV Assessment/Plan Assessment/Plan Hospital Course 1. Abdominal pain with acute diverticulitis in the distal sigmoid colon. No specific sign of microperforation or large abscess formation at this time. CT scan of abdomen reviewed. Pt was treated with a/b earlier. Patient was tr ansferred from outside facility. Appendix is normal. Pain is decreased 2.diabetes mellitus type 2 with hyperglycemia 3. Hypothyroidism 4. Overweight 5. Hypertension, 6. History of arthritis 7. History of asthma 8. Fatty hepatomegaly. There are a CT scan reviewed. 9. 1 mm nonobstructing renal stone left kidney. CT scan of abdomen with no contrast seen 10. June 16, 2016 had varicose vein removal surgery on left leg. 11. July 10, 2017 fractured tibial plateau and has consecutive surgery on the open reduction internal fixation on the left leg and 1 of the screw was rejected and removed on additional surgery September 01, 2017 12. History of heart murmur. Assessment/Plan cld> advance diet per GI> cCarb control CW Levaquin/flagyl stool softners dc fluids resume dm po meds Hold BP meds due to borderline BP consult is appreciated GI prophylaxis Protonix IV Result Diagram: 09/21/18 0615 09/20/18 0544 Results 24hrs Laboratory Tests Test 09/20/18 17:37 09/20/18 20:43 09/21/18 06:15 09/21/18 07:52 Bedside Glucose 141 137 184 White Blood Count 6.3 Red Blood Count 4.04 L Hemoglobin 13.0 Hematocrit 38.3 Mean Corpuscular 94.8 Volume Mean Corpuscular 32.2 Hemoglobin Mean Corpuscular 33.9 Hemoglobin Concent Red Cell 12.8 Distribution Width Platelet Count 361 Mean Platelet Volume 9.9 Immature 0.600 H Granulocytes % Neutrophils % 45.9 Lymphocytes % 42.2 Monocytes % 8.3 Eosinophils % 2.4 Basophils % 0.6 Nucleated Red Blood 0.0 Cells % Immature 0.040 H Granulocytes # Neutrophils # 2.9 Lymphocytes # 2.7 Monocytes # 0.5 Eosinophils # 0.2 Basophils # 0.0 Nucleated Red Blood 0.0 Cells # Test 09/21/18 13:05 Bedside Glucose 175 Subjective 24 Hr Interval Summary Free Text/Dictation Feels better today however slightly weak Exam/Review of Systems Exam Vitals Vital Signs Date Temp Pulse Resp B/P (MAP) Pulse Ox O2 O2 Flow FiO2 Time Delivery Rate 09/21/18 97.5 82 18 121/67 97 14:33 (85) 09/20/18 Room Air 14:00 Intake and Output 09/20/18 09/20/18 09/21/18 1515:00 23:00 07:00 IntakeIntake Total 1660 ml 905 ml 1410 ml OutputOutput Total 1 ml BalanceBalance 1660 ml 905 ml 1409 ml Exam o acute distress, no events overnight. Neck: supple, no thyromegaly, no carotid bruits Lungs: clear bilaterally, decreased. CVS: regular rate and rhythm, abdomen soft, bowel sounds present, TTP RLQ IMPROVED Extremities: no edema, DP palpable Neuro: alert and oriented x 3 Results Results 24hrs Laboratory Tests Test 09/20/18 17:37 09/20/18 20:43 09/21/18 06:15 09/21/18 07:52 Bedside Glucose 141 137 184 White Blood Count 6.3 Red Blood Count 4.04 L Hemoglobin 13.0 Hematocrit 38.3 Mean Corpuscular 94.8 Volume Mean Corpuscular 32.2 Hemoglobin Mean Corpuscular 33.9 Hemoglobin Concent Red Cell 12.8 Distribution Width Platelet Count 361 Mean Platelet Volume 9.9 Immature 0.600 H Granulocytes % Neutrophils % 45.9 Lymphocytes % 42.2 Monocytes % 8.3 Eosinophils % 2.4 Basophils % 0.6 Nucleated Red Blood 0.0 Cells % Immature 0.040 H Granulocytes # Neutrophils # 2.9 Lymphocytes # 2.7 Monocytes # 0.5 Eosinophils # 0.2 Basophils # 0.0 Nucleated Red Blood 0.0 Cells # Test 09/21/18 13:05 Bedside Glucose 175 Medications Medication Current Medications Acetaminophen (Tylenol Tab) 650 mg Q6H PRN PO MILD PAIN(1-3)OR ELEVATED TEMP Last administered on 09/20/18at 01:45; Admin Dose 650 MG; Start 09/18/18 at 11:30 Levofloxacin/ Dextrose 100 ml @ 100 mls/hr Q24H IVPB Last administered on 09/21/18at 12:11; Admin Dose 100 MLS/HR; Start 09/18/18 at 12:00 Ondansetron HCl (Zofran Inj) 4 mg Q4H PRN IV NAUSEA AND/OR VOMITING; Start 09/18/18 at 11:30 Morphine Sulfate (morphine) 2 mg Q4H PRN IV SEVERE PAIN LEVEL 5-10; Start 09/18/18 at 11:30 Miscellaneous Information 1 ea NOTE XX ; Start 09/18/18 at 12:00 Glucose (Glutose) 15 gm Q15M PRN PO DECREASED GLUCOSE; Start 09/18/18 at 12:00 Glucose (Glutose) 22.5 gm Q15M PRN PO DECREASED GLUCOSE; Start 09/18/18 at 1 2:00 Dextrose (D50w Syringe) 25 ml Q15M PRN IV DECREASED GLUCOSE; Start 09/18/18 at 12:00 Dextrose (D50w Syringe) 50 ml Q15M PRN IV DECREASED GLUCOSE; Start 09/18/18 at 12:00 Glucagon (Glucagen) 1 mg Q15M PRN IM DECREASED GLUCOSE; Start 09/18/18 at 12:00 Glucose (Glutose) 15 gm Q15M PRN BUCCAL DECREASED GLUCOSE; Start 09/18/18 at 12:00 Albuterol (Ventolin Hfa) 2 puff Q4H PRN INH SHORTNESS OF BREATH; Start 09/18/18 at 16:30 Levothyroxine Sodium (Synthroid) 50 mcg BEFORE BREAKFAST PO Last administered on 09/21/18at 05:25; Admin Dose 50 MCG; Start 09/19/18 at 07:00 Metronidazole 100 ml @ 100 mls/hr Q8 IVPB Last administered on 09/21/18at 14:16; Admin Dose 100 MLS/HR; Start 09/19/18 at 22:00 Insulin Aspart (Novolog Insulin Pen) NOVOLOG *MODERATE* ALGORI... AC MEALS AND BEDTIME SC Last administered on 09/21/18at 13:07; Admin Dose 2 UNIT; Start 09/19/18 at 21:00 Atorvastatin Calcium (Lipitor) 20 mg QHS PO Last administered on 09/20/18at 20:44; Admin Dose 20 MG; Start 09/20/18 at 21:00 Pantoprazole (Protonix Tab) 40 mg DAILY@06 PO ; Start 09/22/18 at 06:00 Aspirin (Halfprin) 81 mg DAILY PO ; Start 09/22/18 at 09:00; Status UNV CHAD RUSSELL MD Sep 21, 2018 14:38
[2018-09-21] MEDS ORDERED: DOCUSATE SODIUM 100 MG CAP PO PRN (15:00)
[2018-09-21] MEDS: ACCU-CHEK XX SCH ×2 (16:54→20:31)
[2018-09-21] MEDS ORDERED: ACCU-CHEK XX SCH (17:30)
[2018-09-21] MEDS: glyBURIDE 5 MG TAB PO SCH (17:40)
[2018-09-21] MEDS: metFORMIN 500 MG TAB PO SCH (17:40)
[2018-09-21 19:33] VITALS: BP 115/81; PULSE 84; RESP 20
[2018-09-21] MEDS: metroNIDAZOLE 500 MG TAB PO SCH (20:31)
[2018-09-21] MEDS: ATORVASTATIN 20 MG TAB PO SCH (20:31)
[2018-09-22 02:03] VITALS: BP 101/62; PULSE 88; RESP 18
[2018-09-22] MEDS: LEVOFLOXACIN 500 MG TAB PO SCH (05:45)
[2018-09-22] MEDS: LEVOTHYROXINE 50 MCG TAB PO SCH (05:45)
[2018-09-22] MEDS: PANTOPRAZOLE (EC) 40 MG TAB PO SCH (05:45)
[2018-09-22] MEDS ORDERED: PANTOPRAZOLE (EC) 40 MG TAB PO SCH (06:00)
[2018-09-22] MEDS: ACCU-CHEK XX SCH ×4 (07:00→21:06)
[2018-09-22 07:24] VITALS: BP 117/69; PULSE 78; RESP 20
[2018-09-22] MEDS: metroNIDAZOLE 500 MG TAB PO SCH ×3 (08:09→20:46)
[2018-09-22] MEDS: glyBURIDE 5 MG TAB PO SCH ×2 (08:09→17:43)
[2018-09-22] MEDS: ASPIRIN (EC) 81 MG TAB PO SCH (08:09)
[2018-09-22] MEDS: INSULIN ASPART [NOVOLOG] 3 ML PEN SC SCH ×4 (08:13→21:12)
[2018-09-22] MEDS: metFORMIN 500 MG TAB PO SCH ×2 (08:15→17:43)
[2018-09-22 14:14] VITALS: BP 110/66; PULSE 72; RESP 18
--- NOTE | 2018-09-22 15:26 | CONS ---
Assessment/Plan Assessment/Plan Assessment/Plan (Daily) LABORATORY DATA: WBC 6.4, hematocrit is stable. BNP is also within normal limits. IMPRESSION: 1. Mild diverticulitis. 2. Diabetes mellitus. 3. Obesity. 4. Hypothyroidism. 5. Bronchial asthma. 6. Arthritis. 7. Fatty liver. 8. Status post removal of the varicose vein. PLAN: To start the patient on a clear liquid diet. Continue antibiotic. We will advance the diet slowly. Advance to regular diet P.o. antibiotic upon discharge Consultation Date/Type/Reason Admit Date/Time Sep 18, 2018 at 07:40 Initial Consult Date Date/Time of Note DATE: 09/22/18 TIME: 15:24 24 HR Interval Summary Free Text/Dictation I will do discomfort after eating food Exam/Review of Systems Exam Vitals Vital Signs Date Temp Pulse Resp B/P (MAP) Pulse Ox O2 O2 Flow FiO2 Time Delivery Rate 09/22/18 98.2 72 18 110/66 92 Room Air 14:14 (81) Intake and Output 09/21/18 09/21/18 09/22/18 1515:00 23:00 07:00 IntakeIntake Total 940 ml 1525 ml BalanceBalance 940 ml 1525 ml Constitutional: alert, oriented, well developed Psych: no complaints, nl mood/affect Head: normocephalic, atraumatic Eyes: nl conjunctiva, EOMI, nl lids, nl sclera, PERRL ENMT: nl external ears & nose, nl lips & teeth, nl nasal mucosa & septum Neck: supple, non-tender Respiratory: clear to auscultation, normal air movement Cardiovascular: regular rate and rhythm, nl pulses Gastrointestinal: soft, nl liver, spleen, non-tender Musculoskeletal: nl extremities to inspection, nl gait and stance Extremities: normal pulses Neurological: SOCIAL PSYCHOLOGIST II-XII intact, nl mental status, nl speech, nl strength Skin: nl turgor; No rash or lesions Lymph: nl lymph nodes Results Result Diagram: 09/21/18 0615 09/20/18 0544 Results 24hrs Laboratory Tests Test 09/21/18 17:33 09/21/18 20:29 09/22/18 08:08 09/22/18 12:50 Bedside Glucose 272 H 95 156 171 Medications Medication Current Medications Acetaminophen (Tylenol Tab) 650 mg Q6H PRN PO MILD PAIN(1-3)OR ELEVATED TEMP Last administered on 09/20/18at 01:45; Admin Dose 650 MG; Start 09/18/18 at 11:30 Ondansetron HCl (Zofran Inj) 4 mg Q4H PRN IV NAUSEA AND/OR VOMITING; Start 09/18/18 at 11:30 Morphine Sulfate (morphine) 2 mg Q4H PRN IV SEVERE PAIN LEVEL 5-10; Start 09/18/18 at 11:30 Miscellaneous Information 1 ea NOTE XX ; Start 09/18/18 at 12:00 Glucose (Glutose) 15 gm Q15M PRN PO DECREASED GLUCOSE; Start 09/18/18 at 12:00 Glucose (Glutose) 22.5 gm Q15M PRN PO DECREASED GLUCOSE; Start 09/18/18 at 12:00 Dextrose (D50w Syringe) 25 ml Q15M PRN IV DECREASED GLUCOSE; Start 09/18/18 at 12:00 Dextrose (D50w Syringe) 50 ml Q15M PRN IV DECREASED GLUCOSE; Start 09/18/18 at 12:00 Glucagon (Glucagen) 1 mg Q15M PRN IM DECREASED GLUCOSE; Start 09/18/18 at 12:00 Glucose (Glutose) 15 gm Q15M PRN BUCCAL DECREASED GLUCOSE; Start 09/18/18 at 12:00 Albuterol (Ventolin Hfa) 2 puff Q4H PRN INH SHORTNESS OF BREATH; Start 09/18/18 at 16:30 Levothyroxine Sodium (Synthroid) 50 mcg BEFORE BREAKFAST PO Last administered on 09/22/18at 05:45; Admin Dose 50 MCG; Start 09/19/18 at 07:00 Insulin Aspart (Novolog Insulin Pen) NOVOLOG *MODERATE* ALGORI... AC MEALS AND BEDTIME SC Last administered on 09/22/18at 12:52; Admin Dose 2 UNIT; Start 09/19/18 at 21:00 Atorvastatin Calcium (Lipitor) 20 mg QHS PO Last administered on 09/21/18at 20:31; Admin Dose 20 MG; Start 09/20/18 at 21:00 Pantoprazole (Protonix Tab) 40 mg DAILY@06 PO Last administered on 09/22/18at 05:45; Admin Dose 40 MG; Start 09/22/18 at 06:00 Aspirin (Halfprin) 81 mg DAILY PO Last administered on 09/22/18 08:09; Admin Dose 81 MG; Start 09/22/18 at 09:00 Glyburide (Micronase) 5 mg BID WITH MEALS PO Last administered on 09/22/18 08:09; Admin Dose 5 MG; Start 09/21/18 at 18:00 Metformin HCl (Glucophage) 1,000 mg WITH BREAKFAST DINNE PO Last administered on 09/22/18 08:15; Admin Dose 1,000 MG; Start 09/21/18 at 18:00 Diagnostic Test (Pha) (Accu-Chek) 1 ea AC MEALS AND BEDTIME XX Last administered on 09/21/18 20:31; Admin Dose 1 EA; Start 09/21/18 at 17:30 Docusate Sodium (Colace) 100 mg BID PRN PO constipation; Start 09/21/18 at 15:00 Levofloxacin (Levaquin) 500 mg DAILY@06 PO Last administered on 09/22/18 05:45; Admin Dose 500 MG; Start 09/22/18 at 06:00 Metronidazole (Flagyl) 500 mg TID PO Last administered on 09/22/18 12:50; Admin Dose 500 MG; Start 09/21/18 at 21:00 LEANNE FOOTE MD Sep 22, 2018 15:26
--- NOTE | 2018-09-22 15:50 | PN ---
Date/Time of Note Date/Time of Note DATE: 09/22/18 TIME: 15:48 Assessment/Plan VTE Prophylaxis Risk score (from Nsg)>0 risk: 2 SCD applied (from Nsg): Yes Pharmacological prophylaxis: NA/contraindicated Pharm contraindication: low risk/ambulating Lines/Catheters IV Catheter Type (from Nrsg): Saline Lock Urinary Cath still in place: No Assessment/Plan Assessment/Plan . Abdominal pain with acute diverticulitis in the distal sigmoid colon. No specific sign of microperforation or large abscess formation at this time. CT scan of abdomen reviewed. Pt was treated with a/b earlier. Patient was transferred from outside facility. Appendix is normal. Pain is decreased 2.diabetes mellitus type 2 with hyperglycemia 3. Hypothyroidism 4. Overweight 5. Hypertension, 6. History of arthritis 7. History of asthma 8. Fatty hepatomegaly. There are a CT scan reviewed. 9. 1 mm nonobstructing renal stone left kidney. CT scan of abdomen with no contrast seen 10. June 16, 2016 had varicose vein removal surgery on left leg. 11. July 10, 2017 fractured tibial plateau and has consecutive surgery on the open reduction internal fixation on the left leg and 1 of the screw was rejected and removed on additional surgery September 01, 2017 12. History of heart murmur. Assessment/Plan cld> advance diet per GI> cCarb control> will do diverticular diet montior today as had some abd pain today after lunch CW Levaquin/flagyl stool softners Hold BP meds due to borderline BP consult is appreciated GI prophylaxis Protonix IV Result Diagram: 09/21/18 0615 09/20/18 0544 Results 24hrs Laboratory Tests Test 09/21/18 17:33 09/21/18 20:29 09/22/18 08:08 09/22/18 12:50 Bedside Glucose 272 H 95 156 171 Subjective 24 Hr Interval Summary Free Text/Dictation SOME Abdominal pain today after lunch Exam/Review of Systems Exam Vitals Vital Signs Date Temp Pulse Resp B/P (MAP) Pulse Ox O2 O2 Flow FiO2 Time Delivery Rate 09/22/18 98.2 72 18 110/66 92 Room Air 14:14 (81) Intake and Output 09/21/18 09/21/18 09/22/18 1515:00 23:00 07:00 IntakeIntake Total 940 ml 1525 ml BalanceBalance 940 ml 1525 ml Exam o acute distress, no events overnight. Neck: supple, no thyromegaly, no carotid bruits Lungs: clear bilaterally, decreased. CVS: regular rate and rhythm, abdomen soft, bowel sounds present, TTP RLQ IMPROVED Extremities: no edema, DP palpable Neuro: alert and oriented x 3 Results Results 24hrs Laboratory Tests Test 09/21/18 17:33 09/21/18 20:29 09/22/18 08:08 09/22/18 12:50 Bedside Glucose 272 H 95 156 171 Medications Medication Current Medications Acetaminophen (Tylenol Tab) 650 mg Q6H PRN PO MILD PAIN(1-3)OR ELEVATED TEMP Last administered on 09/20/18at 01:45; Admin Dose 650 MG; Start 09/18/18 at 11:30 Ondansetron HCl (Zofran Inj) 4 mg Q4H PRN IV NAUSEA AND/OR VOMITING; Start 09/18/18 at 11:30 Morphine Sulfate (morphine) 2 mg Q4H PRN IV SEVERE PAIN LEVEL 5-10; Start 09/18/18 at 11:30 Miscellaneous Information 1 ea NOTE XX ; Start 09/18/18 at 12:00 Glucose (Glutose) 15 gm Q15M PRN PO DECREASED GLUCOSE; Start 09/18/18 at 12:00 Glucose (Glutose) 22.5 gm Q15M PRN PO DECREASED GLUCOSE; Start 09/18/18 at 12:00 Dextrose (D50w Syringe) 25 ml Q15M PRN IV DECREASED GLUCOSE; Start 09/18/18 at 12:00 Dextrose (D50w Syringe) 50 ml Q15M PRN IV DECREASED GLUCOSE; Start 09/18/18 at 12:00 Glucagon (Glucagen) 1 mg Q15M PRN IM DECREASED GLUCOSE; Start 09/18/18 at 12:00 Glucose (Glutose) 15 gm Q15M PRN BUCCAL DECREASED GLUCOSE; Start 09/18/18 at 12:00 Albuterol (Ventolin Hfa) 2 puff Q4H PRN INH SHORTNESS OF BREATH; Start 09/18/18 at 16:30 Levothyroxine Sodium (Synthroid) 50 mcg BEFORE BREAKFAST PO Last administered on 09/22/18at 05:45; Admin Dose 50 MCG; Start 09/19/18 at 07:00 Insulin Aspart (Novolog Insulin Pen) NOVOLOG *MODERATE* ALGORI... AC MEALS AND BEDTIME SC Last administered on 09/22/18 12:52; Admin Dose 2 UNIT; Start 09/19/18 at 21:00 Atorvastatin Calcium (Lipitor) 20 mg QHS PO Last administered on 09/21/18 20:31; Admin Dose 20 MG; Start 09/20/18 at 21:00 Pantoprazole (Protonix Tab) 40 mg DAILY@06 PO Last administered on 09/22/18 05:45; Admin Dose 40 MG; Start 09/22/18 at 06:00 Aspirin (Halfprin) 81 mg DAILY PO Last administered on 09/22/18 08:09; Admin Dose 81 MG; Start 09/22/18 at 09:00 Glyburide (Micronase) 5 mg BID WITH MEALS PO Last administered on 09/22/18 08:09; Admin Dose 5 MG; Start 09/21/18 at 18:00 Metformin HCl (Glucophage) 1,000 mg WITH BREAKFAST DINNE PO Last administered on 09/22/18 08:15; Admin Dose 1,000 MG; Start 09/21/18 at 18:00 Diagnostic Test (Pha) (Accu-Chek) 1 ea AC MEALS AND BEDTIME XX Last administered on 09/21/18 20:31; Admin Dose 1 EA; Start 09/21/18 at 17:30 Docusate Sodium (Colace) 100 mg BID PRN PO constipation; Start 09/21/18 at 15:00 Levofloxacin (Levaquin) 500 mg DAILY@06 PO Last administered on 09/22/18 05:45; Admin Dose 500 MG; Start 09/22/18 at 06:00 Metronidazole (Flagyl) 500 mg TID PO Last administered on 09/22/18 12:50; Admin Dose 500 MG; Start 09/21/18 at 21:00 CHAD RUSSELL MD Sep 22, 2018 15:50
[2018-09-22 20:01] VITALS: BP 122/58; PULSE 94; RESP 20
[2018-09-22] MEDS: ATORVASTATIN 20 MG TAB PO SCH (20:47)
[2018-09-23 00:58] VITALS: BP 112/67; PULSE 80; RESP 20
[2018-09-23] MEDS: LEVOTHYROXINE 50 MCG TAB PO SCH (05:54)
[2018-09-23] MEDS: LEVOFLOXACIN 500 MG TAB PO SCH (05:54)
[2018-09-23] MEDS: PANTOPRAZOLE (EC) 40 MG TAB PO SCH (05:55)
[2018-09-23] MEDS: ACCU-CHEK XX SCH ×3 (07:00→17:30)
[2018-09-23] MEDS: INSULIN ASPART [NOVOLOG] 3 ML PEN SC SCH ×3 (07:00→17:30)
[2018-09-23 07:34] VITALS: BP 117/70; PULSE 78; RESP 18
[2018-09-23] MEDS: metroNIDAZOLE 500 MG TAB PO SCH ×2 (08:00→12:13)
[2018-09-23] MEDS: glyBURIDE 5 MG TAB PO SCH ×2 (08:00→18:00)
[2018-09-23] MEDS: metFORMIN 500 MG TAB PO SCH ×2 (08:00→18:00)
[2018-09-23] MEDS: ASPIRIN (EC) 81 MG TAB PO SCH (08:03)
[2018-09-23 15:25] VITALS: BP 112/69; PULSE 103; RESP 16
[2018-09-23] MEDS ORDERED: METR500T PO (16:38)
[2018-09-23] MEDS ORDERED: LEVO500T48 PO (16:38)
--- NOTE | 2018-09-23 16:41 | PDOCDIS ---
Discharge Instructions DIAGNOSIS Discharge Diagnosis diverticultis CONDITION [id number] Patient Condition: [id number] Fair HOME CARE INSTRUCTIONS: [id number] Special Diet: [id number] diverticular diet ACTIVITY: [id number] Activity Restrictions: [id number] Slowly Increase Activity Rest between Activity Avoid heavy lifting FOLLOW UP/APPOINTMENTS Follow-up Plan FU PCP in 1-[address] Kearney in 2-3 weeks for colonoscopy return to ER if has abdominal pain/vommting/diaarhoea/fevers diverticulosis diet CHAD RUSSELL MD Sep 23, 2018 16:41
--- NOTE | 2018-09-23 17:43 | CONS ---
Assessment/Plan Assessment/Plan Assessment/Plan (Daily) IMPRESSION: 1. Mild diverticulitis. 2. Diabetes mellitus. 3. Obesity. 4. Hypothyroidism. 5. Bronchial asthma. 6. Arthritis. 7. Fatty liver. 8. Status post removal of the varicose vein. PLAN: To start the patient on a clear liquid diet. Continue antibiotic. We will advance the diet slowly. Advance to regular diet P.o. antibiotic upon discharge Consultation Date/Type/Reason Admit Date/Time Sep 18, 2018 at 07:40 Initial Consult Date Date/Time of Note DATE: 09/23/18 TIME: 17:43 24 HR Interval Summary Constitutional: no complaints, improved Exam/Review of Systems Exam Vitals Vital Signs Date Temp Pulse Resp B/P (MAP) Pulse Ox O2 O2 Flow FiO2 Time Delivery Rate 09/23/18 97.9 103 16 112/69 98 15:25 (83) 09/22/18 Room Air 14:14 Intake and Output 09/22/18 09/22/18 09/23/18 1515:00 23:00 07:00 IntakeIntake Total 1120 ml 200 ml OutputOutput Total 1 ml BalanceBalance 1120 ml 199 ml Constitutional: alert, oriented, well developed Psych: no complaints, nl mood/affect Head: normocephalic, atraumatic Eyes: nl conjunctiva, EOMI, nl lids, nl sclera, PERRL ENMT: nl external ears & nose, nl lips & teeth, nl nasal mucosa & septum Neck: supple, non-tender Respiratory: clear to auscultation, normal air movement Cardiovascular: regular rate and rhythm, nl pulses Gastrointestinal: soft, nl liver, spleen, non-tender Musculoskeletal: nl extremities to inspection, nl gait and stance Extremities: normal pulses Neurological: STOCK[employer] II-XII intact, nl mental status, nl speech, nl strength Skin: nl turgor; No rash or lesions Lymph: nl lymph nodes Results Result Diagram: 09/23/18 0500 09/23/18 0500 Results 24hrs Laboratory Tests Test 09/22/18 20:44 09/23/18 05:00 09/23/18 06:03 09/23/18 07:56 Bedside Glucose 164 110 139 White Blood Count 9.8 # Red Blood Count 4.30 Hemoglobin 13.7 Hematocrit 41.2 Mean Corpuscular 95.8 Volume Mean Corpuscular 31.9 Hemoglobin Mean Corpuscular 33.3 Hemoglobin Concent Red Cell 13.2 Distribution Width Platelet Count 384 Mean Platelet Volume 10.0 Immature 0.800 H Granulocytes % Neutrophils % 50.1 Lymphocytes % 39.2 Monocytes % 7.7 Eosinophils % 1.8 Basophils % 0.4 Nucleated Red Blood 0.0 Cells % Immature 0.080 H Granulocytes # Neutrophils # 4.9 Lymphocytes # 3.8 H Monocytes # 0.8 Eosinophils # 0.2 Basophils # 0.0 Nucleated Red Blood 0.0 Cells # Sodium Level 142 Potassium Level 4.6 Chloride Level 107 Carbon Dioxide Level 27 Anion Gap 8 Blood Urea Nitrogen 15 Creatinine 0.69 Est Glomerular > 60 Filtrat Rate mL/min Glucose Level 121 Calcium Level 9.4 Phosphorus Level 4.2 Magnesium Level 1.9 Test 09/23/18 12:14 Bedside Glucose 151 Medications Medication Current Medications Acetaminophen (Tylenol Tab) 650 mg Q6H PRN PO MILD PAIN(1-3)OR ELEVATED TEMP Last administered on 09/20/18at 01:45; Admin Dose 650 MG; Start 09/18/18 at 11:30 Ondansetron HCl (Zofran Inj) 4 mg Q4H PRN IV NAUSEA AND/OR VOMITING; Start 09/18/18 at 11:30 Miscellaneous Information 1 ea NOTE XX ; Start 09/18/18 at 12:00 Glucose (Glutose) 15 gm Q15M PRN PO DECREASED GLUCOSE; Start 09/18/18 at 12:00 Glucose (Glutose) 22.5 gm Q15M PRN PO DECREASED GLUCOSE; Start 09/18/18 at 12:00 Dextrose (D50w Syringe) 25 ml Q15M PRN IV DECREASED GLUCOSE; Start 09/18/18 at 12:00 Dextrose (D50w Syringe) 50 ml Q15M PRN IV DECREASED GLUCOSE; Start 09/18/18 at 12:00 Glucagon (Glucagen) 1 mg Q15M PRN IM DECREASED GLUCOSE; Start 09/18/18 at 12:00 Glucose (Glutose) 15 gm Q15M PRN BUCCAL DECREASED GLUCOSE; Start 09/18/18 at 12:00 Albuterol (Ventolin Hfa) 2 puff Q4H PRN INH SHORTNESS OF BREATH; Start 09/18/18 at 16:30 Levothyroxine Sodium (Synthroid) 50 mcg BEFORE BREAKFAST PO Last administered on 09/23/18 05:54; Admin Dose 50 MCG; Start 09/19/18 at 07:00 Insulin Aspart (Novolog Insulin Pen) NOVOLOG *MODERATE* ALGORI... AC MEALS AND BEDTIME SC Last administered on 09/23/18 12:26; Admin Dose 2 UNIT; Start 09/19/18 at 21:00 Atorvastatin Calcium (Lipitor) 20 mg QHS PO Last administered on 09/22/18 20:47; Admin Dose 20 MG; Start 09/20/18 at 21:00 Pantoprazole (Protonix Tab) 40 mg DAILY@06 PO Last administered on 09/23/18 05:55; Admin Dose 40 MG; Start 09/22/18 at 06:00 Aspirin (Halfprin) 81 mg DAILY PO Last administered on 09/23/18 08:03; Admin Dose 81 MG; Start 09/22/18 at 09:00 Glyburide (Micronase) 5 mg BID WITH MEALS PO Last administered on 09/23/18 08:00; Admin Dose 5 MG; Start 09/21/18 at 18:00 Metformin HCl (Glucophage) 1,000 mg WITH BREAKFAST DINNE PO Last administered on 09/23/18 08:00; Admin Dose 1,000 MG; Start 09/21/18 at 18:00 Diagnostic Test (Pha) (Accu-Chek) 1 ea AC MEALS AND BEDTIME XX Last administered on 09/22/18 21:06; Admin Dose 1 EA; Start 09/21/18 at 17:30 Docusate Sodium (Colace) 100 mg BID PRN PO constipation; Start 09/21/18 at 15:00 Levofloxacin (Levaquin) 500 mg DAILY@06 PO Last administered on 09/23/18 05:54; Admin Dose 500 MG; Start 09/22/18 at 06:00 Metronidazole (Flagyl) 500 mg TID PO Last administered on 09/23/18 12:13; Admin Dose 500 MG; Start 09/21/18 at 21:00 LEANNE FOOTE MD Sep 23, 2018 17:43
--- NOTE | 2018-09-24 05:19 | DS ---
DATE OF ADMISSION: 09/18/2018 DATE OF DISCHARGE: 09/23/2018 HISTORY OF PRESENT ILLNESS AND HOSPITAL COURSE: This is a 58-year-old female transferred from [facility] facility because of abdominal pain. The patient had abdominal pain, colicky and denied any reporte d nausea, denied any vomiting. The patient had a CAT scan of the abdomen without contrast performed there, which showed interval progression of diverticula seen in the distal sigmoid colon, just additi on with fat stranding and small amount of fluid collection. There was no specific sign of microperfo ration or large abscess. The patient was transferred due to insurance reasons. Previously, the rosa ent had acute diverticulitis August and she was taking Flagyl and Cipro. She was also diagnosed with H . pylori and underwent 2 months of treatment and she was off it. On admission, CBC white count was 7 .9, hemoglobin 13.1, platelet count 351. The patient was started on Rocephin and Flagyl and was admi tted for further management. The patient was seen by GI consultation with Dr. Kearney and was thought to have mild diverticulitis. Recommendations were followed. The patient had gradual improvement du ring the hospitalization stay. Abdominal pain was improving. Was slowly advanced to diet. Currentl y the patient was feeling much better and stable to be discharged home as per GI. FINAL DISCHARGE DIAGNOSES: 1. Acute abdominal pain with acute diverticulitis distal sigmoid colon. No specific sign of micrope rforation or large abscess. 2. Diabetes. 3. Hypothyroidism. 4. Overweight. 5. Hypertension. 6. History of arthritis. 7. History of asthma. 8. Fatty hepatomegaly. 9. A 1 mm nonobstructive renal stone in the left kidney. 10. History of open reduction internal fixation of the left leg. 11. History of varicose vein removal surgery on the left leg. DISCHARGE CONDITION: Stable. DISCHARGE DIET: Diverticular diet. DISCHARGE MEDICATIONS: 1. Levaquin 500 mg p.o. daily for 5 days. 2. Flagyl 500 mg p.o. t.i.d. for 5 days. Continue with home medications which are: 1. Albuterol 2. Fosamax. 3. Aspirin 81. 4. Atorvastatin 20. 5. Benazepril 10. 6. 5 b.i.d. 7. Levothyroxine 50. 8. Loratadine 10. 9. Metformin 1000 b.i.d. 10. Prilosec 20. DISCHARGE INSTRUCTION: The patient was instructed to return to the ER if she has severe abdominal pa in, nausea, vomiting, fevers and chills and follow up with PCP in 1 to 2 weeks and GI in 2 to 3 weeks . The patient will likely need outpatient colonoscopy. Dictated By: CHAD GOLDEN/ISAAC Conf#: [id number] DID#: [id number] CC: RONALD WELLS MD;*EndCC*
== END 2018-09-23 18:55 | disposition home or self-care (01) | DRG 392 ==
LOC: 2NE 07:40
PROVIDERS: ADMIT Internal Medicine Nephrology; ATTEND Internal Medicine Nephrology
DX: K57.32 Diverticulitis of large intestine without perforation or abscess without bleeding (principal); E66.9 Obesity, unspecified; K76.0 Fatty (change of) liver, not elsewhere classified; E03.9 Hypothyroidism, unspecified; E11.9 Type 2 diabetes mellitus without complications; I10 Essential (primary) hypertension; N20.0 Calculus of kidney; Z68.27 Body mass index [BMI] 27.0-27.9, adult
CPT/HCPCS: 80048; 82962; 83036; 83735; 84100; 84443; 84560; 85025; C9113; J1815; J1956; J7042

== ENCOUNTER 2018-10-26 06:30 | Day surgery (SDC) | payer OTHER ==
[~2018-10-26] VITALS: Ht 162.6 cm; Wt 72.8 kg
[~2018-10-26 06:30] MED LIST: ALBU18HF INHALATION; ALEN70TA5 PO; ASPI-817 PO; ATOR40TA68 PO; BENA10TA4 PO; CHOL400T10 PO; ERGO400T4 PO; GLYB5TAB3 PO; LEVO500T48 PO; LEVO50TA7 PO; LORA10TA3 PO; METF100010 PO; METR500T PO; OMEP10CA4 PO
[2018-10-26 07:35] VITALS: BP 146/72; PULSE 105; RESP 12; Ht 162.6 cm; Wt 72.8 kg
[2018-10-26] MEDS ORDERED: PROPOFOL 20 ML ONE (07:38)
[2018-10-26] MEDS ORDERED: FENTAnyl 50 MCG/ML VIAL ONE (07:38)
[2018-10-26 08:57] VITALS: BP 110/58; RESP 20
== END 2018-10-26 11:00 | disposition home or self-care (01) ==
LOC: GIL 06:30
PROVIDERS: ATTEND Internal Medicine Gastroenterology
DX: Z12.11 Encounter for screening for malignant neoplasm of colon (principal); K29.50 Unspecified chronic gastritis without bleeding; K57.30 Diverticulosis of large intestine without perforation or abscess without bleeding; K64.4 Residual hemorrhoidal skin tags; I10 Essential (primary) hypertension; E11.9 Type 2 diabetes mellitus without complications; Z79.82 Long term (current) use of aspirin; Z79.84 Long term (current) use of oral hypoglycemic drugs
CPT/HCPCS: 82962; 88305; 88312; J3010